=== PATIENT | male | born 1960 | race Caucasian/White ===

== ENCOUNTER → 2016-07-28 | Outpatient (CLI) | payer OTHER, MEDICAID ==
[~2016-07-28] MED LIST: HYDR-3307 PO
== END | disposition home or self-care (01) ==
LOC: CFH 07:39
DX: R10.84 Generalized abdominal pain (principal); R63.4 Abnormal weight loss; M25.532 Pain in left wrist; N28.1 Cyst of kidney, acquired; I70.0 Atherosclerosis of aorta; Z90.5 Acquired absence of kidney
CPT/HCPCS: 76700

== ENCOUNTER → 2016-12-11 | Outpatient (CLI) | payer OTHER, MEDICAID | END | disposition home or self-care (01) | LOC: CFH 14:35 | PROVIDERS: ATTEND Internal Medicine | DX: J98.4 Other disorders of lung (principal); J43.9 Emphysema, unspecified; Z90.5 Acquired absence of kidney | CPT/HCPCS: 71250 ==

== ENCOUNTER → 2018-02-26 | Outpatient (CLI) | payer OTHER, MEDICAID ==
[~2018-02-26] MED LIST changes: +OMNIPAQUE 350 MG/ML, 100ML BOTTLE ONE
== END | disposition home or self-care (01) ==
LOC: CFH 12:17
PROVIDERS: ATTEND Nurse Practitioner Primary Care
DX: K46.9 Unspecified abdominal hernia without obstruction or gangrene (principal); Z90.5 Acquired absence of kidney
CPT/HCPCS: 74177; Q9967

== ENCOUNTER 2019-04-10 09:51 | Emergency (ER) | payer MEDICARE, MEDICAID ==
[~2019-04-10] VITALS: Ht 190.5 cm; Wt 99.4 kg
[~2019-04-10 09:51] MED LIST changes: -HYDR-3307 PO; +HYDR-36 PO; -OMNIPAQUE 350 MG/ML, 100ML BOTTLE ONE
[2019-04-10 11:06] LABS: ALANINE AMINOTRANSFERASE 21 U/L (12-78); ALBUMIN 3.8 g/dL (3.4-5.0); ANION GAP 9 mmol/L (5-15); CALCIUM 8.4 mg/dL (8.5-10.1); CHLORIDE 106 mmol/L (98-107); CREATININE 1.11 mg/dL (0.7-1.3)
[2019-04-10 11:11] LABS: ALKALINE PHOSPHATASE 73 U/L (45-117); BILIRUBIN,TOTAL 0.9 mg/dL (0.2-1.0); TOTAL PROTEIN 7.2 g/dL (6.4-8.2); TROPONIN I < 0.015 ng/mL (0.000-0.045)
[2019-04-10 11:14] LABS: BASOPHILS # (AUTO) 0.06 x10^3/uL (0-0.1); BASOPHILS % (AUTO) 1 % (0-1); EOSINOPHILS # (AUTO) 0.02 x10^3/uL (0-0.4); EOSINOPHILS % (AUTO) 0 % (1-7); LYMPHOCYTES # (AUTO) 1.67 x10^3/uL (1-3.4); LYMPHOCYTES % (AUTO) 20 % (22-44); MD NO; MEAN CORPUSCULAR HEMOGLOBIN 29.9 pg (27.5-34.5); MEAN CORPUSCULAR HGB CONC 33.6 g/dL (33.2-36.2); MEAN CORPUSCULAR VOLUME 88.8 fL (81-97); MEAN PLATELET VOLUME 8.7 fL (7.4-10.4); MONOCYTES # (AUTO) 0.65 x10^3/uL (0.2-0.8); MONOCYTES % (AUTO) 8 % (2-9); NEUTROPHILS # (AUTO) 5.86 x10^3/uL (1.8-6.8); NEUTROPHILS % (AUTO) 71 % (42-75); PLATELET COUNT 264 x10^3/uL (130-400); RED BLOOD COUNT 5.48 x10^6/uL (4.38-5.82); RED CELL DISTRIBUTION WIDTH 14.4 % (9.4-14.8)
[2019-04-10] MEDS ORDERED: HYDROmorphone 1 MG/ML, 1ML INJ ONE (11:26)
--- NOTE | 2019-04-10 11:29 | NUR ---
PT MEDICATED PER MAY. PT RESTING IN [facility], AWAITING LAB AND ADDITIONAL RAD IMAGING. AT BEDSIDE, PT ON MONITOR, CALL LIGHT WTIHIN REACH
[2019-04-10] MEDS ORDERED: HYDROmorphone 1 MG/ML, 1ML INJ IM ONE (11:30)
[2019-04-10] MEDS ORDERED: ONDANSETRON ODT 4 MG ONE (11:36)
[2019-04-10 12:26] VITALS: BP 145/83
--- NOTE | 2019-04-10 12:27 | NUR ---
PT RESTING IN GURNEY WITH AT BEDSIDE, STATES PAIN BETTER AFTER MEDICATION. AWAITING RECHECK BY MD. CALL LIGHT ELIEZER PUENTE.
--- NOTE | 2019-04-10 13:09 | NUR ---
Patient given discharge instructions and they have confirmed that they understand the instructions. Patient ambulatory with steady gait. Pt left with d/c paperwork, Rx, and all personal belongings.
== END 2019-04-10 13:11 | disposition home or self-care (01) ==
LOC: ED 10:37
DX: R07.89 Other chest pain (principal); F17.210 Nicotine dependence, cigarettes, uncomplicated
CPT/HCPCS: 36415; 71045; 80053; 84484; 85025; 85379; 93005; 96372; 99284; J1170